=== PATIENT | female | born 2000 | race Caucasian/White ===

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

== ENCOUNTER → 2023-05-30 | Outpatient (CLI) | payer OTHER ==
[2023-06-01 19:10] LABS: Adenovirus F 40/41 Not Detected (NOT DETECT); Astrovirus Not Detected (NOT DETECT); Campylobacter Sp Not Detected (NOT DETECT); Cryptosporidium Not Detected (NOT DETECT); Cyclospora Cayetanensis Not Detected (NOT DETECT); E. Coli O157 Not Detected (NOT DETECT); Entamoeba Histolytica Not Detected (NOT DETECT); Enteroaggregative E. coli-EAEC Not Detected (NOT DETECT); Enteropathogenic E. coli-EPEC Not Detected (NOT DETECT); Enterotoxigenic E. coli-ETEC Not Detected (NOT DETECT); Giardia Lamblia Not Detected (NOT DETECT); Norovirus GI/GII Not Detected (NOT DETECT); Plesiomonas Shigelloides Not Detected (NOT DETECT); Rotavirus A Not Detected (NOT DETECT); Salmonella Sp Not Detected (NOT DETECT); Sapovirus Detected (NOT DETECT); Shiga Toxin-prod E. coli-STEC Not Detected (NOT DETECT); Shigella/Enteroin E. coli-EIEC Not Detected (NOT DETECT); Vibrio Cholerae Not Detected (NOT DETECT); Vibrio Sp Not Detected (NOT DETECT); Yersinia Enterocolitica Not Detected (NOT DETECT)
== END | disposition home or self-care (01) ==
LOC: LAB 11:40 → LAB SHORT 11:40
PROVIDERS: Family Medicine
DX: K52.9 Noninfective gastroenteritis and colitis, unspecified (principal)
CPT/HCPCS: 87507

== ENCOUNTER 2024-10-02 11:00 | Inpatient (IN) | payer OTHER ==
[~2024-10-02] VITALS: Ht 160 cm; Wt 65.5 kg
[2024-10-02] VITALS (32 sets, daily range): BP systolic 118–171; BP diastolic 64–91
[2024-10-02] MEDS ORDERED: Methylergonovine Maleate 0.2MG / ML 1ML Amp IM PRN ×2 (11:25→18:20)
[2024-10-02] MEDS ORDERED: Misoprostol 200 MCG Tab PR PRN ×2 (11:25→18:20)
[2024-10-02] MEDS ORDERED: Acetaminophen 500 MG Tab PO PRN (11:25)
[2024-10-02] MEDS ORDERED: FentaNYL 2mcg/ml-Bup 0.1% Epd 250 ML EPI PRN (11:25)
[2024-10-02] MEDS ORDERED: Oxytocin 10 Unit / ML Vial IM PRN (11:25)
[2024-10-02] MEDS ORDERED: OXYTOCIN/RINGER'S LACTATE 500 ML IV PRN (11:25)
[2024-10-02] MEDS ORDERED: ePHEDrine Sulfate 50 MG/ML 1ML Injection XX PRN (11:25)
[2024-10-02] MEDS ORDERED: Ondansetron HCl 2 MG / ML 2ML Vial IV PRN (11:25)
[2024-10-02] MEDS ORDERED: Lactated Ringer's 1,000 ML IV PRN (11:25)
[2024-10-02] MEDS ORDERED: Carboprost Tromethamine 250 MCG/ML 1ML Amp IM PRN (11:25)
[2024-10-02] MEDS ORDERED: Calcium Carbonate 500 MG Tab Chew PO PRN (11:25)
[2024-10-02] MEDS ORDERED: Misoprostol 200 MCG Tab BC PRN (11:25)
[2024-10-02] MEDS ORDERED: Lactated Ringer's 1,000 ML IV SCH ×3 (11:25→18:20)
[2024-10-02] MEDS ORDERED: PRENATAL TABLE1 EAC2 (11:26)
[2024-10-02] MEDS ORDERED: OMEP20ER (11:26)
[2024-10-02] MEDS ORDERED: Tranexamic Acid 100 ML IV SCH (11:30)
[2024-10-02 11:49] LABS: BASOPHILS ABSOLUTE AUTO 0.03 K/mm3 (0.00-0.23); BASOPHILS PERCENT AUTO 0 % (0-2); EOSINOPHILS ABSOLUTE AUTO 0.08 K/mm3 (0.00-0.68); EOSINOPHILS PERCENT AUTO 1 % (0-6); Hematocrit 35.8 % (33.0-51.0); Hemoglobin 12.7 g/dL (11.5-16.0); IMMATURE GRAN ABSOLUTE AUTO 0.07 K/mm3 (0.00-0.10); IMMATURE GRAN PERCENT AUTO 1 % (0-1); LYMPHOCYTES ABSOLUTE AUTO 2.05 K/mm3 (0.84-5.20); LYMPHOCYTES PERCENT AUTO 16 % (21-46); MONOCYTES ABSOLUTE AUTO 0.95 K/mm3 (0.16-1.47); MONOCYTES PERCENT AUTO 7 % (4-13); Mean Corpuscular HGB 31.8 pg (26.0-34.0); Mean Corpuscular HGB Conc 35.5 g/dL (31.5-36.5); Mean Corpuscular Volume 90 fL (80-100); Mean Platelet Volume 11.9 fL (9.1-12.4); NEUTROPHILS ABSOLUTE AUTO 9.75 K/mm3 (1.96-9.15); NEUTROPHILS PERCENT AUTO 76 % (41-73); Platelet Count 261 K/mm3 (150-400); RDW Coefficient Variation 12.9 % (11.7-14.2); RDW Standard Deviation 42.4 fL (35.1-46.3); White Blood Cell Count 12.93 K/mm3 (4.00-11.30)
[2024-10-02] MEDS ORDERED: Lanolin Cream TOP PRN (18:20)
[2024-10-02] MEDS ORDERED: Acetaminophen 325 MG TABLET PO PRN (18:20)
[2024-10-02] MEDS ORDERED: Benzocaine Topical Anesthetic Spray 60GM TOP PRN (18:25)
[2024-10-02] MEDS ORDERED: FLU VACC TS2024-25(6MOS UP)/PF 45 MCG/0.5 ML SYRINGE IM SCH (18:25)
[2024-10-02] MEDS ORDERED: Ibuprofen 400 MG Tab PO PRN (18:25)
[2024-10-02] MEDS ORDERED: OXYTOCIN/RINGER'S LACTATE 500 ML IV SCH (18:25)
[2024-10-02] MEDS ORDERED: Witch Hazel/Glycerin PADS TOP PRN (18:25)
[2024-10-03] MEDS ORDERED: Ketorolac Tromethamine 30mg Vial IV SCH
[2024-10-03 01:01] VITALS: BP 119/75
[2024-10-03 03:40] VITALS: BP 114/80
[2024-10-03 06:31] LABS: BASOPHILS ABSOLUTE AUTO 0.04 K/mm3 (0.00-0.23); BASOPHILS PERCENT AUTO 0 % (0-2); EOSINOPHILS ABSOLUTE AUTO 0.09 K/mm3 (0.00-0.68); EOSINOPHILS PERCENT AUTO 1 % (0-6); Hematocrit 30.1 % (33.0-51.0); Hemoglobin 10.5 g/dL (11.5-16.0); IMMATURE GRAN PERCENT AUTO 1 % (0-1); LYMPHOCYTES PERCENT AUTO 14 % (21-46); MONOCYTES ABSOLUTE AUTO 1.33 K/mm3 (0.16-1.47); MONOCYTES PERCENT AUTO 8 % (4-13); Mean Corpuscular HGB 31.5 pg (26.0-34.0); Mean Corpuscular HGB Conc 34.9 g/dL (31.5-36.5); Mean Corpuscular Volume 90 fL (80-100); Mean Platelet Volume 11.8 fL (9.1-12.4); NEUTROPHILS PERCENT AUTO 76 % (41-73); Platelet Count 217 K/mm3 (150-400); RDW Coefficient Variation 12.8 % (11.7-14.2); RDW Standard Deviation 42.3 fL (35.1-46.3); Red Blood Cell Count 3.33 M/mm3 (3.80-5.20); White Blood Cell Count 15.86 K/mm3 (4.00-11.30)
[2024-10-03 08:45] VITALS: BP 128/83
[2024-10-03] MEDS ORDERED: Prenatal Vit/FE Fumarate/FA 1 Tab PO SCH (09:00)
[2024-10-03 11:53] VITALS: BP 120/71
--- NOTE | 2024-10-03 15:17 | NUR ---
EPDS PT SCORED 15 ON DEPRESSION SCALE, WITH 1 ON QUESTION 10. THIS NURSE HAS VERIFIED ACCURACY WITH PT R/T WITHIN PAST 7 DAYS AND CONFIRMED BY PATIENT. PT REPORTS ALOT GOING ON AT HOME WITH FAMILY. SOCIAL SERVICE PROVIDER HAS BEEN CALL FOR CONSULT AND PT PROVIDER NOTIFIED AT THIS TIME.
--- NOTE | 2024-10-03 15:31 | NUR ---
FURTHER DEPRESSION COMMUNICATION AFTER FURTHER CONVERSATION WITH PATIENT, SHE INFORMS OF HX OF SI ATTEMPT TEEN. PT ALSO INFORMS OF HX OF SELF HARM OF CUTTING BUT NOT FOR YEARS. PT INFORMS THAT SHE DOES CONTINUE WITH SOME SELF HARM ACTIVITIES TO DEAL WITH STRESS SUCH BITING KNUCKLES AND/OR TONGUE. THIS NURSE HAS QUESTIONED TO CONCERNS OF SELF/ HARM IF INFANT UNCONSOLABLE. PT ASSURES THAT SHE HAS HAD NOT HAD ANY STRESS WITH HER BABY AND BABY HAS BEEN SOOTHING TO HER, JUST HER PETS AND CAREGIVING JOB. 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 PT ALSO REPORTS NEVER TAKING ANTI DEPRESSANTS AND ADMITS THAT SHE MAY NEED SOME. PT REPORTS AN UNDERSTANDING OF POST DEPRESSION AND REPORTS HER THOUGHTS AND CONCERNS OF DEVELOPING DEPRESSION FOLLOWING DELIVERY AND DISCHARGE.
[2024-10-03] MEDS ORDERED: ACET500 PO (18:56)
[2024-10-03] MEDS ORDERED: Ketorolac Tromethamine 30mg Vial IV ONE (19:10)
[2024-10-03 19:30] VITALS: BP 121/78
== END 2024-10-03 19:58 | disposition home or self-care (01) | DRG 807 ==
LOC: OBS 11:00 → BC 11:00 → OBS 11:14 → BC 11:15
PROVIDERS: ADMIT Obstetrics & Gynecology
PROC: 10E0XZZ Delivery of Products of Conception, External Approach (ICD-10-PCS; principal; 2024-10-02)
PROC: 10907ZC Drainage of Amniotic Fluid, Therapeutic from Products of Conception, Via Natural or Artificial Opening (ICD-10-PCS; 2024-10-02)
PROC: 0HQ9XZZ Repair Perineum Skin, External Approach (ICD-10-PCS; 2024-10-02)
DX: O48.0 Post-term pregnancy (principal); Z37.0 Single live birth; O99.62 Diseases of the digestive system complicating childbirth; K21.9 Gastro-esophageal reflux disease without esophagitis; Z88.5 Allergy status to narcotic agent; Z3A.40 40 weeks gestation of pregnancy; O70.0 First degree perineal laceration during delivery
CPT/HCPCS: 36415; 51702; 59025; 85025; 86850; 86900; 86901; 99214; A9270; J1885; J2590; J7120

== ENCOUNTER 2024-12-25 06:51 | Emergency (ER) | payer OTHER ==
[~2024-12-25] VITALS: Ht 162.6 cm; Wt 54.4 kg
[~2024-12-25 06:51] MED LIST changes: +ACET500 PO; +OMEP20ER; +PRENATAL TABLE1 EAC2
[2024-12-25] MEDS ORDERED: Ketorolac Tromethamine 30mg Vial IV ONE (07:30)
[2024-12-25] MEDS ORDERED: Ondansetron HCl 2 MG / ML 2ML Vial IV ONE (07:30)
[2024-12-25] MEDS ORDERED: NS 500 ML IV SCH (07:30)
[2024-12-25 07:57] LABS: BASOPHILS ABSOLUTE AUTO 0.05 K/mm3 (0.00-0.23); BASOPHILS PERCENT AUTO 0 % (0-2); EOSINOPHILS ABSOLUTE AUTO 0.16 K/mm3 (0.00-0.68); EOSINOPHILS PERCENT AUTO 1 % (0-6); Hematocrit 37.5 % (33.0-51.0); Hemoglobin 12.9 g/dL (11.5-16.0); IMMATURE GRAN ABSOLUTE AUTO 0.03 K/mm3 (0.00-0.10); IMMATURE GRAN PERCENT AUTO 0 % (0-1); LYMPHOCYTES ABSOLUTE AUTO 2.32 K/mm3 (0.84-5.20); LYMPHOCYTES PERCENT AUTO 20 % (21-46); MONOCYTES PERCENT AUTO 7 % (4-13); Mean Corpuscular HGB 30.1 pg (26.0-34.0); Mean Corpuscular HGB Conc 34.4 g/dL (31.5-36.5); Mean Corpuscular Volume 88 fL (80-100); Mean Platelet Volume 10.4 fL (9.1-12.4); NEUTROPHILS ABSOLUTE AUTO 8.06 K/mm3 (1.96-9.15); NEUTROPHILS PERCENT AUTO 71 % (41-73); Platelet Count 347 K/mm3 (150-400); RDW Coefficient Variation 12.8 % (11.7-14.2); RDW Standard Deviation 41.1 fL (35.1-46.3); Red Blood Cell Count 4.28 M/mm3 (3.80-5.20); White Blood Cell Count 11.42 K/mm3 (4.00-11.30)
[2024-12-25 08:12] LABS: Albumin, Blood 4.2 g/dL (3.4-5.0); Albumin/Globulin Ratio 1.2 (0.8-1.8); Bilirubin, Direct 0.1 mg/dL (0.0-0.3); Bilirubin, Indirect 0.5 mg/dL (0.1-0.7); Bilirubin, Total 0.6 mg/dL (0.1-1.0); Bun/Creatinine Ratio 8.6 (12.0-20.0); Calcium, Blood 9.3 mg/dL (8.5-10.1); Creatinine, Blood 1.16 mg/dL (0.40-1.00); Globulin, Blood 3.4 g/dL (2.2-4.0); Potassium, Blood 3.6 mmol/L (3.5-5.5); Total Protein, Blood 7.6 g/dL (6.4-8.2)
[2024-12-25] MEDS ORDERED: Morphine Sulfate 4 MG/1 ML Injection IV ONE (08:30)
[2024-12-25] MEDS ORDERED: HYDROmorphone HCl/Pf 1MG SYR IV ONE (10:10)
[2024-12-25 10:24] LABS: Source, Urine Clean Catch
[2024-12-25 10:34] LABS: Appearance, Urine Hazy (Clear); Bilirubin, Urine Neg (Neg); Blood, Urine 5+ (Neg); Color, Urine Yellow (P-Yellow); Glucose Qualitative, Urine Neg (Neg); Ketones, Urine 2+ (Neg); Leukocyte Esterase, Urine Neg (Neg); Nitrite, Urine Neg (Neg); Protein, Urine 1+ (Neg); Urobilinogen, Urine NORM (Normal)
[2024-12-25 10:48] LABS: Amorphous Heavy (0-Heavy); Bacteria Few /hpf; Squamous Epithelial Cells Mod /hpf (Few); White Blood Cells, Urine 0-2 /hpf (0-5)
[2024-12-25 10:54] VITALS: BP 130/73
[2024-12-25] MEDS ORDERED: ONDA4ODT MM (11:01)
[2024-12-25] MEDS ORDERED: Morphine Sulfat15 MG PO (11:01)
== END 2024-12-25 11:52 | disposition home or self-care (01) ==
LOC: ER 06:51
PROVIDERS: Student in an Organized Health Care Education/Training Program
DX: N13.2 Hydronephrosis with renal and ureteral calculous obstruction (principal); N17.9 Acute kidney failure, unspecified; Z88.5 Allergy status to narcotic agent; Z79.899 Other long term (current) drug therapy; K21.9 Gastro-esophageal reflux disease without esophagitis; Z87.891 Personal history of nicotine dependence
CPT/HCPCS: 74177; 80048; 80076; 81001; 83690; 84703; 85025; 96374-59; 96375; 99284-25; J1171; J1885; J2270; J2405; J7030; Q9967